=== PATIENT | female | born 1960 | race Caucasian/White ===

== ENCOUNTER 2016-05-09 14:59 | Emergency (ER) | payer OTHER ==
[~2016-05-09] VITALS: Ht 165.1 cm; Wt 87.7 kg
[2016-05-09 17:34] LABS: HEMATOCRIT 35.5 % (36.0-46.0); MCH 29.8 PG (29.0-34.0); MCHC 33.2 G/DL (30.0-36.0); MCV 89.6 FL (83-99); MEAN PLAT.VOLUME 11.9 uM^3 (9.5-12.4); PLATELET COUNT 65 K/uL (156-360); RBC DIS.WIDTH-CV 14.3 % (11.8-14.6); RBC DIS.WIDTH-SD 45.9 % (39-53); RED BLOOD COUNT 3.96 M/uL (3.80-5.20)
[2016-05-09 17:39] LABS: WHITE BLOOD COUNT 8.1 K/uL (4.1-10.2)
[2016-05-09 17:47] LABS: CHLORIDE 109 mEq/L (99-109); SODIUM 141 mEq/L (136-147)
[2016-05-09 17:48] LABS: GLUCOSE 123 mg/dL (70-99)
[2016-05-09 17:50] LABS: ANION GAP 7 MEQ/L (2-14)
[2016-05-09 17:52] LABS: GFR ESTIMATE (CALCULATED) > 59 mL/min/
[2016-05-09 17:53] LABS: UREA NITROGEN (BUN) 7 mg/dL (9-23)
[2016-05-09 19:14] VITALS: BP 131/61
== END 2016-05-09 19:15 | disposition home or self-care (01) ==
LOC: EME 14:59
PROVIDERS: Physician Assistant
DX: G89.18 Other acute postprocedural pain (principal); M54.9 Dorsalgia, unspecified; M54.2 Cervicalgia; Z98.890 Other specified postprocedural states; F17.200 Nicotine dependence, unspecified, uncomplicated
CPT/HCPCS: 72125; 80048; 85027; 99281; 99285; J2270

== ENCOUNTER 2016-10-21 13:28 | Emergency (ER) | payer OTHER ==
[~2016-10-21] VITALS: Ht 165.1 cm; Wt 95.9 kg
[2016-10-21 16:46] LABS: HEMATOCRIT 29.6 % (36.0-46.0); MCH 26.7 PG (29.0-34.0); MCHC 31.1 G/DL (30.0-36.0); MCV 85.8 FL (83-99); MEAN PLAT.VOLUME 12.4 uM^3 (9.5-12.4); PLATELET COUNT 70 K/uL (156-360); RBC DIS.WIDTH-CV 14.6 % (11.8-14.6); RBC DIS.WIDTH-SD 45.4 % (39-53); RED BLOOD COUNT 3.45 M/uL (3.80-5.20); WHITE BLOOD COUNT 3.6 K/uL (4.1-10.2)
[2016-10-21 16:56] LABS: CHLORIDE 103 mEq/L (99-109); POTASSIUM 3.8 mEq/L (3.7-5.4); SODIUM 139 mEq/L (136-147)
[2016-10-21 16:58] LABS: GLUCOSE 92 mg/dL (70-99)
[2016-10-21 16:59] LABS: ANION GAP 10 MEQ/L (2-14)
[2016-10-21 17:00] LABS: TOTAL BILIRUBIN 0.7 mg/dL (0.0-1.0)
[2016-10-21 17:01] LABS: ALKALINE PHOSPHATASE 91 IU/L (3-129)
[2016-10-21 17:02] LABS: GFR ESTIMATE (CALCULATED) > 59 mL/min/
[2016-10-21 17:03] LABS: UREA NITROGEN (BUN) 6 mg/dL (9-23)
[2016-10-21 20:47] VITALS: BP 127/65
== END 2016-10-21 20:48 | disposition home or self-care (01) ==
LOC: EME 13:28
PROVIDERS: Nurse Practitioner Family
DX: G89.18 Other acute postprocedural pain (principal); Z98.1 Arthrodesis status; Z48.01 Encounter for change or removal of surgical wound dressing; F17.200 Nicotine dependence, unspecified, uncomplicated; Z88.6 Allergy status to analgesic agent; Z88.0 Allergy status to penicillin
CPT/HCPCS: 72132; 80053; 85027; 99281; 99284; J2270